=== PATIENT | female | born 1940 | race Caucasian/White ===

== ENCOUNTER → 2016-11-02 | Outpatient (CLI) | payer OTHER ==
--- NOTE | 2016-11-02 17:06 | DX ---
PA and Lateral Chest Clinical Indications: Cough in a 76-year-old female. Comparison: January 24, 2013. Findings: No focal pulmonary consolidation is seen. Mild peribronchial thickening is identified. The re is hyperexpansion seen with flattening of the hemidiaphragms noted. Scoliotic curvature is seen and a minimal pectus excavatum deformity is noted. The heart size and pulmonary vascularity are normal. Pleural surfaces and bony thorax are negative fo r acute abnormality. Impression: Query COPD/chronic bronchitis with no superimposed acute abnormality identified.
== END ==
LOC: BMCIMAGING 15:52
PROVIDERS: ATTEND Internal Medicine Pulmonary Disease
DX: R05 Cough (principal)

== ENCOUNTER → 2017-04-27 | Outpatient (CLI) | payer OTHER | LOC: FIMAGING 08:55 | PROVIDERS: ATTEND Internal Medicine | DX: E04.1 Nontoxic single thyroid nodule (principal) ==

== ENCOUNTER → 2018-04-19 | Outpatient (CLI) | payer OTHER | LOC: FIMAGING 08:31 | PROVIDERS: ATTEND Internal Medicine | DX: Z12.31 Encounter for screening mammogram for malignant neoplasm of breast (principal) ==